=== PATIENT | female | born 1995 | race African-American/Black ===

== ENCOUNTER 2017-07-11 05:38 | Emergency (ER) | payer MEDICAID ==
[~2017-07-11] VITALS: Ht 167.6 cm; Wt 117.0 kg
[2017-07-11] MEDS ORDERED: ACETAMINOPHEN 325MG TABLET PO STA (07:14)
[2017-07-11] MEDS ORDERED: SODIUM CHLORIDE 0.9% 1,000 ML IV ONE (07:14)
[2017-07-11] MEDS ORDERED: ONDANSETRON HCL 4MG/2ML VIAL IV ONE ×2 (07:15→11:45)
[2017-07-11] MEDS ORDERED: FAMOTIDINE 20MG/2ML VIAL IV ONE (07:15)
[2017-07-11 07:35] LABS: CHLORIDE 102 mEq/L (98-107)
[2017-07-11 07:50] LABS: CARBON DIOXIDE 26 mEq/L (21-32)
[2017-07-11 08:00] LABS: B-HCG QUANTITATIVE 13765 mIU/mL (<3)
[2017-07-11 08:03] LABS: BASOPHILS % 0.6 % (0.0-2.0); EOSINOPHILS % 0.7 % (0.0-5.0); HEMATOCRIT. 33.9 % (36.0-48.0); HEMOGLOBIN. 11.1 g/dL (12.0-16.0); LYMPHOCYTES % 16.5 % (20.0-50.0); MEAN CORPUSCULAR HEMOGLOBIN 23.2 pg (28.0-32.0); MEAN CORPUSCULAR VOLUME 70.7 fL (81.0-99.0); MEAN PLATELET VOLUME 8.3 fl (7.4-10.4); MONOCYTES % 4.5 % (2.0-8.0); NEUTROPHILS % 77.7 % (40.0-76.0); PLATELET 281 x1000/uL (130-400); RED BLOOD CELL COUNT 4.79 mill/uL (4.2-5.4); RED CELL DISTRIBUTION WIDTH 15.6 % (11.6-14.6)
[2017-07-11 08:19] LABS: CLARITY URINE CLOUDY (CLEAR); COLOR URINE YELLOW (YELLOW); GLUCOSE URINE NEGATIVE (NEGATIVE); KETONES URINE NEGATIVE (NEGATIVE); LEUKOCYTE ESTERASE URINE NEGATIVE (NEGATIVE); NITRITE URINE NEGATIVE (NEGATIVE); OCCULT BLOOD URINE NEGATIVE (NEGATIVE); PROTEIN URINE TRACE (NEGATIVE)
[2017-07-11] MEDS ORDERED: MORPHINE SULFATE 4 MG/ML CPJ (NOT FOR IM USE) IV ONE ×2 (09:45→11:45)
[2017-07-11] MEDS ORDERED: ONDANSETRON 4MG ODT PO ONE (11:30)
[2017-07-11 11:45] VITALS: BP 128/80
== END 2017-07-11 12:52 | disposition home or self-care (01) ==
LOC: ER 09:21
DX: R10.9 Unspecified abdominal pain (principal); R11.2 Nausea with vomiting, unspecified
CPT/HCPCS: 36415; 76801; 80053; 81001; 84702; 85025; 96374; 96375; 96376; 99285; J2270; J2405; J3490; J7030; Q0162; Z7610; 96361

== ENCOUNTER 2017-07-21 19:41 | Inpatient (IN) | payer MEDICAID ==
[~2017-07-21] VITALS: Ht 167.6 cm; Wt 105.7 kg
[2017-07-22] MEDS ORDERED: SODIUM CHLORIDE 0.9% 1,000 ML IV ONE (00:30)
[2017-07-22 01:11] LABS: CLARITY URINE CLOUDY (CLEAR); COLOR URINE YELLOW (YELLOW); GLUCOSE URINE NEGATIVE (NEGATIVE); KETONES URINE 3+ (NEGATIVE); LEUKOCYTE ESTERASE URINE NEGATIVE (NEGATIVE); NITRITE URINE NEGATIVE (NEGATIVE); OCCULT BLOOD URINE NEGATIVE (NEGATIVE); PROTEIN URINE TRACE (NEGATIVE); SPECIFIC GRAVITY URINE 1.026 (1.005-1.030)
[2017-07-22 01:24] LABS: BASOPHILS % 0.6 % (0.0-2.0); EOSINOPHILS % 0.1 % (0.0-5.0); HEMATOCRIT. 31.7 % (36.0-48.0); HEMOGLOBIN. 10.2 g/dL (12.0-16.0); LYMPHOCYTES % 11.9 % (20.0-50.0); MEAN CORPUSCULAR HEMOGLOBIN 22.8 pg (28.0-32.0); MEAN PLATELET VOLUME 8.7 fl (7.4-10.4); MONOCYTES % 4.3 % (2.0-8.0); NEUTROPHILS % 83.1 % (40.0-76.0); PLATELET 304 x1000/uL (130-400); RED BLOOD CELL COUNT 4.46 mill/uL (4.2-5.4)
[2017-07-22 01:30] LABS: CHLORIDE 102 mEq/L (98-107); INR 1.1; PROTHROMBIN TIME 11.1 sec (9.4-11.6)
[2017-07-22 01:34] LABS: CARBON DIOXIDE 26 mEq/L (21-32)
[2017-07-22] MEDS ORDERED: PYRIDOXINE HCL 50MG TABLET PO ONE (01:45)
[2017-07-22] MEDS ORDERED: ACETAMINOPHEN 650MG/20.3ML UDC PO ONE (01:45)
[2017-07-22] MEDS ORDERED: ONDANSETRON HCL 4MG/2ML VIAL IV ONE (02:45)
[2017-07-22] MEDS ORDERED: CEFTRIAXONE 1 G PREMIX 50 ML IV ONE (03:15)
[2017-07-22 09:52] VITALS: BP 136/77
[2017-07-22 09:55] VITALS: BP 136/77
[2017-07-22] MEDS ORDERED: ACETAMINOPHEN 325MG TABLET PO NR (11:00)
[2017-07-22] MEDS ORDERED: DEXT 5%/0.45% NACL 1000ML 1,000 ML IV SCH (11:00)
[2017-07-22] MEDS ORDERED: CEFTRIAXONE 1 G PREMIX 50 ML IV SCH (11:00)
[2017-07-22] MEDS ORDERED: ACETAMINOPHEN 325MG TABLET PO PRN (11:00)
[2017-07-22 16:00] VITALS: BP 124/76
[2017-07-22] MEDS ORDERED: ACETAMINOPHEN 650MG/20.3ML UDC PO PRN (16:00)
[2017-07-22] MEDS ORDERED: ONDANSETRON HCL 4MG/2ML VIAL IV PRN ×2 (16:45→17:00)
[2017-07-22] MEDS ORDERED: POTASSIUM CHLORIDE 20MEQ TABLET SR PO NR (17:00)
[2017-07-22] MEDS ORDERED: FAMOTIDINE 20MG/2ML VIAL IV SCH (18:15)
[2017-07-22 19:01] LABS: BASOPHILS % 0.9 % (0.0-2.0); EOSINOPHILS % 0.6 % (0.0-5.0); HEMATOCRIT. 29.8 % (36.0-48.0); HEMOGLOBIN. 9.5 g/dL (12.0-16.0); LYMPHOCYTES % 23.3 % (20.0-50.0); MEAN CORPUSCULAR HEMOGLOBIN 22.7 pg (28.0-32.0); MEAN CORPUSCULAR VOLUME 71.5 fL (81.0-99.0); MONOCYTES % 5.1 % (2.0-8.0); NEUTROPHILS % 70.1 % (40.0-76.0); PLATELET 278 x1000/uL (130-400); RED BLOOD CELL COUNT 4.17 mill/uL (4.2-5.4); RED CELL DISTRIBUTION WIDTH 16.1 % (11.6-14.6)
[2017-07-22 19:17] LABS: CARBON DIOXIDE 25 mEq/L (21-32); CHLORIDE 106 mEq/L (98-107)
[2017-07-22] MEDS ORDERED: METOCLOPRAMIDE HCL 10MG/2ML VIAL IV SCH (19:45)
[2017-07-22] MEDS ORDERED: MORPHINE SULFATE 2 MG/ML CPJ (NOT FOR IM USE) IV NR (20:30)
[2017-07-22] MEDS ORDERED: FOLIC ACID 1 MG, THIAMINE HCL 100 MG, MVI, ADULT NO.1 10 ML in DEXTROSE 5% WATER 1,000 ML IV ONE ×4 (22:00)
[2017-07-24] MEDS ORDERED: METOCLOPRAMIDE HCL 10MG/2ML VIAL IV SCH
== END 2017-07-22 20:45 | disposition left against medical advice (07) | DRG 566 ==
LOC: ER 19:41 → 6EST 07-22 05:53 → ENRESERV 07-22 08:15
PROVIDERS: ADMIT Family Medicine; ATTEND Family Medicine
DX: O21.0 Mild hyperemesis gravidarum (principal); E43 Unspecified severe protein-calorie malnutrition; O10.912 Unspecified pre-existing hypertension complicating pregnancy, second trimester; E86.0 Dehydration; G89.29 Other chronic pain; R10.12 Left upper quadrant pain; D72.829 Elevated white blood cell count, unspecified; O26.892 Other specified pregnancy related conditions, second trimester; O99.212 Obesity complicating pregnancy, second trimester; E66.9 Obesity, unspecified; Z3A.18 18 weeks gestation of pregnancy; Z68.37 Body mass index [BMI] 37.0-37.9, adult; O25.12 Malnutrition in pregnancy, second trimester
CPT/HCPCS: 36415; 74181; 76770; 76805; 80048; 80053; 81001; 83605; 83690; 85025; 85610; 86850; 86900; 96361; 96365; 96375; 99285; J0696; J2405; J2765; J3411; J3490; J7030; J7070

== ENCOUNTER 2017-11-07 21:27 | Observation (INO) | payer MEDICAID ==
[~2017-11-07] VITALS: Ht 167.6 cm; Wt 116.1 kg
[2017-11-07] MEDS ORDERED: PNV1TABL76 MT (22:30)
[2017-11-07] MEDS ORDERED: LABE100T PO (22:30)
== END 2017-11-07 22:40 | disposition home or self-care (01) ==
LOC: L&D 21:27
PROVIDERS: ADMIT Obstetrics & Gynecology; ATTEND Obstetrics & Gynecology
DX: O62.9 Abnormality of forces of labor, unspecified (principal); Z3A.35 35 weeks gestation of pregnancy
CPT/HCPCS: 99281; G0378

== ENCOUNTER 2018-11-19 08:19 | Emergency (ER) | payer MEDICAID ==
[~2018-11-19] VITALS: Ht 167.6 cm; Wt 95.0 kg
[~2018-11-19 08:19] MED LIST: LABE100T5 PO; PNV1TABL76 MT
[2018-11-19] MEDS ORDERED: ONDANSETRON HCL 4MG/2ML INJ IM ONE (10:45)
[2018-11-19] MEDS ORDERED: MORPHINE SULFATE 4 MG/ML CPJ (NOT FOR IM USE) IV ONE (10:45)
[2018-11-19 11:24] LABS: CLARITY URINE CLEAR (CLEAR); COLOR URINE YELLOW (YELLOW); KETONES URINE 2+ (NEGATIVE); LEUKOCYTE ESTERASE URINE NEGATIVE (NEGATIVE); NITRITE URINE NEGATIVE (NEGATIVE); OCCULT BLOOD URINE NEGATIVE (NEGATIVE); PROTEIN URINE TRACE (NEGATIVE); SPECIFIC GRAVITY URINE 1.027 (1.005-1.030); UROBILINOGEN URINE 0.2 E.U./dL (0.2-1.0)
[2018-11-19 12:55] VITALS: BP 140/90
== END 2018-11-19 12:55 | disposition home or self-care (01) ==
LOC: ER 08:19
DX: K52.9 Noninfective gastroenteritis and colitis, unspecified (principal); R03.0 Elevated blood-pressure reading, without diagnosis of hypertension
CPT/HCPCS: 81003; 81025; 96374; 99283; J2270; J2405

== ENCOUNTER 2019-12-24 11:52 | Inpatient (IN) | payer MEDICAID ==
[~2019-12-24] VITALS: Ht 167.6 cm; Wt 83.9 kg
[2019-12-24] MEDS ORDERED: ONDANSETRON HCL 4MG/2ML INJ IV STA ×2 (12:22→17:21)
[2019-12-24] MEDS ORDERED: SODIUM CHLORIDE 0.9% 1,000 ML IV ONE (12:22)
[2019-12-24] MEDS ORDERED: ACETAMINOPHEN 325MG TABLET PO PRN ×2 (12:30→20:00)
[2019-12-24 12:55] LABS: BASOPHILS % 0.8 % (0.0-2.0); EOSINOPHILS % 0.1 % (0.0-5.0); HEMOGLOBIN. 13.1 g/dL (12.0-16.0); MEAN CORPUSCULAR HEMOGLOBIN 26.3 pg (28.0-32.0); MEAN CORPUSCULAR VOLUME 78.3 fL (81.0-99.0); MEAN PLATELET VOLUME 8.7 fl (7.4-10.4); MONOCYTES % 2.3 % (2.0-8.0); NEUTROPHILS % 88.8 % (40.0-76.0); PLATELET 337 x1000/uL (130-400); RED BLOOD CELL COUNT 4.99 mill/uL (4.2-5.4); RED CELL DISTRIBUTION WIDTH 14.5 % (11.6-14.6)
[2019-12-24] MEDS ORDERED: MORPHINE SULFATE 4 MG/ML CPJ (NOT FOR IM USE) IV ONE ×2 (13:00→15:15)
[2019-12-24 13:02] LABS: CHLORIDE 106 mEq/L (98-107)
[2019-12-24 13:09] LABS: ETHANOL BLOOD < 10 mg/dL
[2019-12-24 13:16] LABS: CLARITY URINE CLOUDY (CLEAR); COLOR URINE ORANGE (YELLOW); KETONES URINE 4+ (NEGATIVE); LEUKOCYTE ESTERASE URINE 2+ (NEGATIVE); NITRITE URINE NEGATIVE (NEGATIVE); OCCULT BLOOD URINE 3+ (NEGATIVE); PROTEIN URINE 2+ (NEGATIVE); SPECIFIC GRAVITY URINE 1.029 (1.005-1.030); UROBILINOGEN URINE 0.2 E.U./dL (0.2-1.0)
[2019-12-24 13:31] LABS: *AMPHETAMINES SCREEN URINE NEGATIVE (NEGATIVE); *BARBITURATES SCREEN URINE NEGATIVE (NEGATIVE); *BENZODIAZEPINES SCREEN URINE NEGATIVE (NEGATIVE); *COCAINE SCREEN URINE NEGATIVE (NEGATIVE); METHADONE URINE SCREEN NEGATIVE (NEGATIVE); PHENCYCLIDINE URINE SCREEN NEGATIVE (NEGATIVE)
[2019-12-24 13:34] LABS: CANNABINOID URINE SCREEN PRESUMTIVE POSITIVE (NEGATIVE); OPIATES URINE SCREEN PRESUMTIVE POSITIVE (NEGATIVE)
[2019-12-24] MEDS ORDERED: PIPERACILLIN/TAZ 3.375G PREMIX 50 ML IV ONE (13:45)
[2019-12-24] MEDS ORDERED: ONDANSETRON HCL 4MG/2ML INJ IV ONE (15:30)
[2019-12-24] MEDS ORDERED: MORPHINE SULFATE 4 MG/ML CPJ (NOT FOR IM USE) IV STA (17:21)
[2019-12-24] MEDS ORDERED: IOHEXOL-300 100 ML BOTTLE ONE (18:41)
[2019-12-24] MEDS ORDERED: DOCUSATE SODIUM 100MG CAPSULE PO PRN (20:00)
[2019-12-24] MEDS ORDERED: CLONIDINE 0.1MG TABLET PO PRN (20:00)
[2019-12-24] MEDS ORDERED: IPRATROPIUM/ALBUTEROL 0.5-3(2.5)MG/3ML NEB HHN PRN (20:00)
[2019-12-24] MEDS ORDERED: LORAZEPAM 0.5MG TABLET PO PRN (20:00)
[2019-12-24] MEDS ORDERED: CEFTRIAXONE 1 G PREMIX 50 ML IV SCH (20:45)
[2019-12-24 20:52] LABS: HCG SCREEN NEGATIVE
[2019-12-24] MEDS: ONDANSETRON HCL 4MG/2ML INJ IV PRN (21:10)
[2019-12-24] MEDS: HYDROCODONE/ACETAMINOPHEN 5/325MG TABLET PO PRN (21:56)
[2019-12-25] MEDS: HYDROCODONE/ACETAMINOPHEN 5/325MG TABLET PO PRN ×4 (02:53→23:33)
[2019-12-25 08:02] LABS: BASOPHILS % 0.7 % (0.0-2.0); HEMATOCRIT. 36.2 % (36.0-48.0); HEMOGLOBIN. 11.9 g/dL (12.0-16.0); LYMPHOCYTES % 13.4 % (20.0-50.0); MEAN CORPUSCULAR HEMOGLOBIN 25.6 pg (28.0-32.0); MEAN CORPUSCULAR VOLUME 77.5 fL (81.0-99.0); MEAN PLATELET VOLUME 8.8 fl (7.4-10.4); MONOCYTES % 3.8 % (2.0-8.0); NEUTROPHILS % 82.1 % (40.0-76.0); PLATELET 279 x1000/uL (130-400); RED BLOOD CELL COUNT 4.67 mill/uL (4.2-5.4); RED CELL DISTRIBUTION WIDTH 14.7 % (11.6-14.6)
[2019-12-25 08:10] LABS: CHLORIDE 105 mEq/L (98-107)
[2019-12-25 08:30] VITALS: BP 117/73
[2019-12-25 09:40] VITALS: BP 116/73
[2019-12-25] MEDS ORDERED: METH500T6 PO (10:09)
[2019-12-25] MEDS: CEFTRIAXONE 1,000 MG in DEXTROSE 5% WATER 50 ML IV SCH (12:56)
[2019-12-25] MEDS: METHOCARBAMOL 500MG TABLET PO SCH (17:49)
[2019-12-25] MEDS ORDERED: CEFTRIAXONE 1 G PREMIX 50 ML IV SCH (20:00)
[2019-12-26] MEDS: ONDANSETRON HCL 4MG/2ML INJ IV PRN (01:23)
[2019-12-26 07:54] LABS: BASOPHILS % 0.6 % (0.0-2.0); EOSINOPHILS % 0.4 % (0.0-5.0); HEMATOCRIT. 38.8 % (36.0-48.0); HEMOGLOBIN. 12.5 g/dL (12.0-16.0); MEAN CORPUSCULAR HEMOGLOBIN 25.3 pg (28.0-32.0); MEAN CORPUSCULAR VOLUME 78.4 fL (81.0-99.0); MEAN PLATELET VOLUME 8.6 fl (7.4-10.4); MONOCYTES % 4.2 % (2.0-8.0); NEUTROPHILS % 65.8 % (40.0-76.0); PLATELET 269 x1000/uL (130-400); RED BLOOD CELL COUNT 4.95 mill/uL (4.2-5.4); RED CELL DISTRIBUTION WIDTH 14.5 % (11.6-14.6)
[2019-12-26 08:37] LABS: CHLORIDE 108 mEq/L (98-107)
[2019-12-26] MEDS ORDERED: LABETALOL HCL 100MG TABLET PO SCH (09:00)
[2019-12-26] MEDS: METHOCARBAMOL 500MG TABLET PO SCH (09:31)
[2019-12-26] MEDS: HYDROCODONE/ACETAMINOPHEN 5/325MG TABLET PO PRN (09:32)
[2019-12-26] MEDS ORDERED: NITR-87 MT (11:31)
[2019-12-26] MEDS: CEFTRIAXONE 1,000 MG in DEXTROSE 5% WATER 50 ML IV SCH (11:34)
[2019-12-26 14:53] VITALS: BP 110/70
[2019-12-27] MEDS ORDERED: CEFTRIAXONE 1 G PREMIX 50 ML IV SCH (11:00)
== END 2019-12-26 15:14 | disposition home or self-care (01) | DRG 463 ==
LOC: ER 11:52 → 6EST 18:12 → ENRESERV 12-25 07:44 → 6EST 12-25 10:16
PROVIDERS: ADMIT Internal Medicine; ATTEND Internal Medicine
DX: N10 Acute pyelonephritis (principal); I10 Essential (primary) hypertension; R82.4 Acetonuria; Z98.891 History of uterine scar from previous surgery; Z79.899 Other long term (current) drug therapy; N39.0 Urinary tract infection, site not specified
CPT/HCPCS: 36415; 74177; 76830; 76856; 80048; 80053; 80061; 80305; 80320; 81003; 83036; 84703; 85025; 99285; J0696; J2270; J2405; J2543; J7030; J7060; Q9967; G0480

== ENCOUNTER 2020-01-13 08:11 | Emergency (ER) | payer MEDICAID ==
[~2020-01-13] VITALS: Ht 167.6 cm; Wt 82.0 kg
[~2020-01-13 08:11] MED LIST changes: +METH500T6 PO; +NITR-87 MT
[2020-01-13 08:48] VITALS: BP 157/109
[2020-01-13] MEDS ORDERED: HEPARIN 1000 UNITS/ML 10ML ONE (09:19)
[2020-01-13] MEDS ORDERED: LIDOCAINE HCL 1% 20ML VIAL (Pyxis) INJ ONE (09:19)
[2020-01-13] MEDS ORDERED: SODIUM BICARBONATE 4% (2.4MEQ) 5ML VIAL IV ONE (09:19)
== END 2020-01-13 13:04 | disposition left against medical advice (07) ==
LOC: ER 08:11
DX: Z53.21 Procedure and treatment not carried out due to patient leaving prior to being seen by health care provider (principal); R10.32 Left lower quadrant pain; R11.2 Nausea with vomiting, unspecified
CPT/HCPCS: 82962; J1644; J3490

== ENCOUNTER 2020-10-19 17:51 | Emergency (ER) | payer MEDICAID ==
[~2020-10-19] VITALS: Ht 167.6 cm; Wt 83.0 kg
[2020-10-19] MEDS ORDERED: ACETAMINOPHEN 325MG TABLET PO ONE (21:45)
[2020-10-19 22:13] LABS: CLARITY URINE CLEAR (CLEAR); COLOR URINE YELLOW (YELLOW); KETONES URINE NEGATIVE (NEGATIVE); LEUKOCYTE ESTERASE URINE 1+ (NEGATIVE); NITRITE URINE NEGATIVE (NEGATIVE); OCCULT BLOOD URINE TRACE (NEGATIVE); PROTEIN URINE NEGATIVE (NEGATIVE); SPECIFIC GRAVITY URINE 1.021 (1.005-1.030); UROBILINOGEN URINE 0.2 E.U./dL (0.2-1.0)
[2020-10-19 23:05] VITALS: BP 131/67
== END 2020-10-19 23:08 | disposition home or self-care (01) ==
LOC: ER 17:51
DX: N39.0 Urinary tract infection, site not specified (principal); B96.89 Other specified bacterial agents as the cause of diseases classified elsewhere; R03.0 Elevated blood-pressure reading, without diagnosis of hypertension
CPT/HCPCS: 81003; 81025; 93005; 99284

== ENCOUNTER 2021-07-12 20:23 | Emergency (ER) | payer MEDICARE ==
[~2021-07-12] VITALS: Ht 167.6 cm; Wt 87.0 kg
[2021-07-12 20:33] VITALS: BP 125/79
[2021-07-12] MEDS ORDERED: IBUPROFEN 600MG TABLET PO STA (20:52)
[2021-07-13] MEDS ORDERED: IBUP-2029 MT (00:40)
[2021-07-13] MEDS ORDERED: CEPH500C2 MT (00:40)
== END 2021-07-12 22:29 | disposition left against medical advice (07) ==
LOC: ER 20:23
DX: Z53.21 Procedure and treatment not carried out due to patient leaving prior to being seen by health care provider (principal)

== ENCOUNTER 2021-07-12 22:45 | Emergency (ER) | payer MEDICARE ==
[~2021-07-12] VITALS: Ht 167.6 cm; Wt 86.0 kg
[~2021-07-12 22:45] MED LIST changes: +METH-773 PO; -METH500T6 PO
[2021-07-12] MEDS ORDERED: IBUPROFEN 600MG TABLET PO STA (23:15)
[2021-07-13 00:12] LABS: CLARITY URINE TURBID (CLEAR); COLOR URINE YELLOW (YELLOW); KETONES URINE TRACE (NEGATIVE); LEUKOCYTE ESTERASE URINE 2+ (NEGATIVE); NITRITE URINE NEGATIVE (NEGATIVE); OCCULT BLOOD URINE 3+ (NEGATIVE); PH URINE 6.5 (4.5-8.0); PROTEIN URINE 1+ (NEGATIVE); SPECIFIC GRAVITY URINE 1.022 (1.005-1.030); UROBILINOGEN URINE 0.2 E.U./dL (0.2-1.0)
[2021-07-13] MEDS ORDERED: CEPH500C2 MT (00:40)
[2021-07-13] MEDS ORDERED: IBUP-2029 MT (00:40)
[2021-07-13 01:00] VITALS: BP 124/81
== END 2021-07-13 01:18 | disposition home or self-care (01) ==
LOC: ER 22:45
DX: N30.00 Acute cystitis without hematuria (principal); Z98.890 Other specified postprocedural states; Z79.899 Other long term (current) drug therapy
CPT/HCPCS: 81003; 81025; 87077; 87186; 99283

== ENCOUNTER 2021-10-27 21:14 | Emergency (ER) | payer MEDICARE ==
[~2021-10-27] VITALS: Ht 167.6 cm; Wt 86.0 kg
[~2021-10-27 21:14] MED LIST changes: +CEPH500C2 MT; +IBUP-2029 MT
[2021-10-27 21:28] VITALS: BP 135/82
[2021-10-27 22:57] LABS: CLARITY URINE CLEAR (CLEAR); COLOR URINE YELLOW (YELLOW); KETONES URINE NEGATIVE (NEGATIVE); LEUKOCYTE ESTERASE URINE TRACE (NEGATIVE); NITRITE URINE NEGATIVE (NEGATIVE); OCCULT BLOOD URINE 3+ (NEGATIVE); PH URINE 5.5 (4.5-8.0); PROTEIN URINE TRACE (NEGATIVE); UROBILINOGEN URINE 0.2 E.U./dL (0.2-1.0)
[2021-10-28] MEDS ORDERED: NAPR-681 PO (00:57)
[2021-10-28] MEDS ORDERED: SULF1TAB48 MT (00:57)
[2021-11-02 04:07] LABS: NEISSERIA GONORRHOEAE NAA Negative (Negative)
== END 2021-10-28 01:10 | disposition home or self-care (01) ==
LOC: ER 21:14
DX: N39.0 Urinary tract infection, site not specified (principal); I10 Essential (primary) hypertension
CPT/HCPCS: 81003; 87491; 87591; 99283

== ENCOUNTER 2021-10-31 18:22 | Emergency (ER) | payer MEDICARE ==
[~2021-10-31] VITALS: Ht 167.6 cm; Wt 81.0 kg
[~2021-10-31 18:22] MED LIST changes: +NAPR-681 PO; +SULF1TAB48 MT
[2021-10-31] MEDS ORDERED: KETOROLAC 30MG/ML VIAL IV NR (18:59)
[2021-10-31 21:39] LABS: CLARITY URINE CLEAR (CLEAR); COLOR URINE YELLOW (YELLOW); KETONES URINE TRACE (NEGATIVE); LEUKOCYTE ESTERASE URINE NEGATIVE (NEGATIVE); NITRITE URINE NEGATIVE (NEGATIVE); OCCULT BLOOD URINE NEGATIVE (NEGATIVE); PROTEIN URINE NEGATIVE (NEGATIVE); SPECIFIC GRAVITY URINE 1.034 (1.005-1.030)
[2021-10-31 21:54] LABS: BASOPHILS % 0.7 % (0.0-2.0); EOSINOPHILS % 1.4 % (0.0-5.0); HEMATOCRIT. 37.5 % (36.0-48.0); HEMOGLOBIN. 12.1 g/dL (12.0-16.0); LYMPHOCYTES % 30.1 % (20.0-50.0); MEAN CORPUSCULAR HEMOGLOBIN 25.4 pg (28.0-32.0); MEAN CORPUSCULAR VOLUME 78.5 fL (81.0-99.0); MEAN PLATELET VOLUME 7.7 fl (7.4-10.4); MONOCYTES % 4.7 % (2.0-8.0); NEUTROPHILS % 63.1 % (40.0-76.0); PLATELET 309 x1000/uL (130-400); RED BLOOD CELL COUNT 4.78 mill/uL (4.2-5.4)
[2021-10-31 22:01] LABS: CHLORIDE 110 mEq/L (98-107)
[2021-11-01 01:23] VITALS: BP 136/67
== END 2021-11-01 01:24 | disposition home or self-care (01) ==
LOC: ER 18:22
DX: R10.32 Left lower quadrant pain (principal); M54.89 Other dorsalgia; Z87.440 Personal history of urinary (tract) infections
CPT/HCPCS: 36415; 74176; 80053; 81003; 81025; 83690; 85025; 96374; 99284; J1885

== ENCOUNTER 2021-11-01 06:53 | Emergency (ER) | payer MEDICARE ==
[~2021-11-01] VITALS: Ht 167.6 cm; Wt 82.0 kg
[2021-11-01 06:58] VITALS: BP 155/70
== END 2021-11-01 11:44 | disposition left against medical advice (07) ==
LOC: ER 06:53
DX: R10.9 Unspecified abdominal pain (principal); R11.2 Nausea with vomiting, unspecified
CPT/HCPCS: 99281